=== PATIENT | female | born 1975 | race Caucasian/White ===

== ENCOUNTER 2017-08-15 17:37 | Emergency (ER) | payer SELFPAY ==
[~2017-08-15] VITALS: Ht 157.5 cm; Wt 58.4 kg
[2017-08-15] MEDS ORDERED: PROPARACAINE OPHTH 0.5%, 15ML EACHEYE ONE (18:00)
[2017-08-15] MEDS ORDERED: FLUORESCEIN OPHTHALMIC 1 MG STRIP EACHEYE ONE (18:00)
[2017-08-15] MEDS ORDERED: FLUORESCEIN OPHTHALMIC 1 MG STRIP ONE (18:12)
[2017-08-15] MEDS ORDERED: PROPARACAINE OPHTH 0.5%, 15ML ONE (18:12)
[2017-08-15 19:29] VITALS: BP 112/75
== END 2017-08-15 19:31 | disposition home or self-care (01) ==
LOC: ED 19:25
DX: S05.02XA Injury of conjunctiva and corneal abrasion without foreign body, left eye, initial encounter (principal); H20.9 Unspecified iridocyclitis; X58.XXXA Exposure to other specified factors, initial encounter; Y93.89 Activity, other specified; Y92.89 Other specified places as the place of occurrence of the external cause; Y99.8 Other external cause status
CPT/HCPCS: 99283

== ENCOUNTER 2020-01-06 15:07 | Emergency (ER) | payer SELFPAY ==
[~2020-01-06] VITALS: Ht 157.5 cm; Wt 59.1 kg
[2020-01-06 15:17] VITALS: BP 159/99
[2020-01-06] MEDS ORDERED: IBUPROFEN 200 MG TABLET PO ONE (15:30)
[2020-01-06] MEDS ORDERED: CLINDAMYCIN 300 MG CAPSULE PO ONE (15:30)
[2020-01-06] MEDS ORDERED: IBUPROFEN 600 MG TABLET ONE (15:48)
[2020-01-06] MEDS ORDERED: CLINDAMYCIN 300 MG CAPSULE ONE (15:48)
== END 2020-01-06 15:55 | disposition home or self-care (01) ==
LOC: ED 15:45
DX: K08.89 Other specified disorders of teeth and supporting structures (principal); Z85.3 Personal history of malignant neoplasm of breast; F17.200 Nicotine dependence, unspecified, uncomplicated
CPT/HCPCS: 99283

== ENCOUNTER 2020-04-04 01:44 | Emergency (ER) | payer SELFPAY ==
[~2020-04-04] VITALS: Ht 157.5 cm; Wt 60.6 kg
[2020-04-04 03:52] VITALS: BP 135/81
== END 2020-04-04 03:54 | disposition home or self-care (01) ==
LOC: ED 02:46
DX: S20.211A Contusion of right front wall of thorax, initial encounter (principal); F17.290 Nicotine dependence, other tobacco product, uncomplicated; Z90.12 Acquired absence of left breast and nipple; W01.0XXA Fall on same level from slipping, tripping and stumbling without subsequent striking against object, initial encounter; Y93.89 Activity, other specified; Y92.89 Other specified places as the place of occurrence of the external cause; Y99.8 Other external cause status
CPT/HCPCS: 99283